=== PATIENT | female | born 1995 | race Caucasian/White ===

== ENCOUNTER → 2017-07-02 | Outpatient (CLI) | payer BC ==
[2017-07-03 14:57] LABS: CHLAMYDIA TRACH RNA*** NOT DETECTED (NOT DETECTED); GC (NEIS GONORRHOEAE)RNA** NOT DETECTED (NOT DETECTED)
== END | disposition home or self-care (01) ==
LOC: C.LABSPEC 10:50
PROVIDERS: ATTEND Physician Assistant
DX: Z01.419 Encounter for gynecological examination (general) (routine) without abnormal findings (principal)

== ENCOUNTER → 2017-07-02 | Outpatient (CLI) | payer BC | END | disposition home or self-care (01) | LOC: C.PAPS 11:19 | PROVIDERS: ATTEND Physician Assistant | DX: Z01.419 Encounter for gynecological examination (general) (routine) without abnormal findings (principal) ==

== ENCOUNTER 2022-08-13 03:46 | Inpatient (IN) ==
[2022-08-13] MEDS ORDERED: OXYTOCIN 30 UNITS/500 ML BAG IV PRN ×2 (04:30→08:39)
[2022-08-13] MEDS ORDERED: LIDOCAINE 1% LOCAL 20 ML VIAL INFIL PRN (04:30)
[2022-08-13] MEDS ORDERED: ePHEDrine sulfate 50 MG/ML AMP ONE (04:36)
[2022-08-13] MEDS ORDERED: LIDOCAINE 2%/EPINEPHRINE 1:200,000 20 ML SDV ONE (04:37)
[2022-08-13] MEDS ORDERED: fentaNYL 2MCG/ML ROPIVACAINE 1.25MG/ML 100 ML BAG EPI ONE (04:37)
[2022-08-13] MEDS ORDERED: BUPIVACAINE 0.25% 30 ML VIAL ONE ×2 (04:37→10:19)
[2022-08-13] MEDS ORDERED: fentaNYL citrate 100 MCG/2 ML VIAL ONE (04:37)
[2022-08-13] MEDS ORDERED: SODIUM CHLORIDE 0.9% INJ 10 ML VIAL ONE (04:37)
--- NOTE | 2022-08-13 04:39 | History & Physical Report ---
Date of Service August 13, 2022 Assessment & Plan (1) Supervision of normal intrauterine in primigravida: Plan: IUP at 38 weeks with SPROM and spontaneous labor check BSG now epidural when requested anticipate vaginal delivery History of Present Illness Primary Care Provider: Tony Williamson Patient is a 27 yo female EDC 08/26/22 who presents with SPROM and spontaneous onset of contractions at 0100. complicated by presumed GDM as patient failed 1 hr Glucola but never did 2hr GTT. growth scans have been AGA. last scan at 36 weeks is EFW 66%tile/ AC 75%tile. GBS negative. Blood type A positive. Allergies Allergy/AdvReac Type Severity Reaction Status Date / Time Penicillins Allergy Intermediate Rash Verified 08/13/22 04:08 Home Medications Medication Instructions Recorded Confirmed Type prenat.vits,dino,eex-qpdc-oceer 1 tab PO DAILY 01/18/22 08/13/22 History Patient History Medical History H/O infectious mononucleosis Migraine with aura no estrogens. Surgical History History of dental surgery Family History Mother Hypertension Denies family history of Ovarian cancer Breast cancer Colorectal cancer Social History (Updated 01/18/22 @ 09:53 by Alisa Davis) Smoking Status: Never smoker Hx Alcohol Use: No Hx Substance Use: No Preferred Language: Tajik Communication Ability: Effective Resawyer Required: No Beliefs That Will Affect Care: None marital status: Single marital status details: Russel (25) [phone] Current Living Situation: Significant Other Current Living Situation Comment: house with FOB current occupational status: employed current occupation: Attendant [employer] Other Information That Helps Us Care for You: No Feels Safe at Home: Yes Safety Concerns: Feels Safe At This Time Assistive Devices: None Review of Systems All systems reviewed & are unremarkable except as noted in HPI & below Physical Exam Constitutional: WD/WN, vitals as above Psychiatric: A+Ox3, euthymic affect Genitourinary: OB Exam Abdomen: + vertex, + estimated weight (7-8 pounds) and + regular contractions Manual OB Exam: + cervical dilation 4 cm, + cervical effacement 80%, + station -1 and + amniotic fluid (grossly ruptured) clear OB Exam Monitor Tracing: + external FHT monitor used, + external uterine monitor used, + category I and + normal FHT variability Results & Data ([place]) Vital Signs (Past 12 Hours) Vital Signs Temp Pulse Resp BP O2 Del Method 08/13/22 04:09 98.4 F 18 Room Air 08/13/22 04:07 98.4 F 93 H 18 134/77 Code Status & VTE Plan VTE Prophylaxis Plan VTE Prophylaxis will be ordered: No Coding Level of Care Code None Diagnoses Supervision of normal intrauterine in primigravida Z34.00
[2022-08-13] MEDS: LACTATED RINGER'S 1,000 ML IV PRN ×3 (04:43→09:50)
[2022-08-13 04:59] LABS: Hematocrit (blood only) 32.3 % (34.1-44.9); Hemoglobin 10.1 g/dl (12.0-16.0); Mean Corpuscular Hemoglobin 23.2 pg (25.0-34.0); Mean Corpuscular Hgb Conc 31.3 g/dL (32.0-36.0); Mean Corpuscular Volume 74.1 fL (80.0-100.0); Mean Platelet Volume 9.6 fL (9.4-12.3); Platelet Count 301 K/uL (130-400); RDW Coefficient of Variation 15.4 % (11.5-14.5); RDW Standard Deviation 40.9 fL (36.4-46.3); Red Blood Count 4.36 M/uL (3.93-5.22); White Blood Count 9.67 K/ul (4.8-10.8)
[2022-08-13] MEDS ORDERED: diphenhydrAMINE 50 MG/ML VIAL IV PRN (05:16)
[2022-08-13] MEDS ORDERED: NALBUPHINE HCL INJ 10 MG/ML AMP IV PRN (05:16)
[2022-08-13] MEDS ORDERED: NALOXONE HCL 1 MG in SODIUM CHLORIDE 0.9% 1000ML 1,000 ML IV PRN (05:16)
[2022-08-13] MEDS ORDERED: ONDANSETRON INJ 2 MG/ML 2 ML VIAL IV PRN (05:16)
[2022-08-13] MEDS ORDERED: fentaNYL 2MCG/ML ROPIVACAINE 1.25MG/ML 100 ML BAG EPI PRN (05:16)
[2022-08-13] MEDS ORDERED: ePHEDrine sulfate 50 MG/ML AMP IV PRN (05:16)
[2022-08-13] MEDS ORDERED: NALOXONE HCL 0.4 MG/1 ML VIAL/CARP IV PRN (05:16)
--- NOTE | 2022-08-13 05:18 | Anesthesiology Consultation ---
Date of Service August 13, 2022 Assessment & Plan Chart Review Chart Review: Patient NOT seen in Pre Admission Testing and Acceptable Risk for Labor Epidural Consults Requested none ASA ASA2 Proposed Anesthesia Anesthesia Type: Labor Epidural and CSE Risk / Benefits Reviewed With: PT / POA / Parent / Guardian, Accepts Plan and Informed Consent Obtained History Height/Weight Height: 5 ft 4 in Weight: 97.976 kg Allergies Allergy/AdvReac Type Severity Reaction Status Date / Time Penicillins Allergy Intermediate Rash Verified 08/13/22 04:08 Medications Home Medications Medication Instructions Recorded Confirmed Last Taken prenat.vits,dino,kyh-fneo-ygerj 1 tab PO DAILY 01/18/22 08/13/22 08/12/22 Active Medications Generic Name Dose Route Start Last Admin Trade Name Freq PRN Reason Stop Dose Admin Lactated Ringer's 1,000 mls @ 125 mls/hr 08/13/22 04:30 08/13/22 04:43 Lr IV 08/15/22 04:29 999 mls/hr .Q8H PRN Administration L&D Protocol Protocol NPO Date Last Intake of Fluids: 08/13/22 Time Last Intake of Fluids: 04:00 Date Last Intake of Solids: 08/12/22 Time Last Intake of Solids: 18:00 Past Medical History Medical History H/O infectious mononucleosis Migraine with aura no estrogens. Exercise / Class Metabolic Activity II 4-5 Yardwork/Stairs/Walk up hill Past Family History Family History Mother Hypertension Denies family history of Ovarian cancer Breast cancer Colorectal cancer Past Surgical History Surgical History History of dental surgery Past Anesthesia History No Hx of Anesthesia Complications and No Family Hx of Anesthesia Complications History of PONV No Hx of PONV and No Hx of Motion Sickness Social History Smoking Status: Never smoker Hx Alcohol Use: No Hx Substance Use: No Review of Systems no chest pain or sob Physical Exam Vital Signs Last Vital Signs Temp 36.9 C 08/13/22 04:09 Pulse 93 H 08/13/22 04:07 Resp 18 08/13/22 04:09 BP 134/77 08/13/22 04:07 O2 Del Method 08/13/22 04:09 ENMT Mouth: no TMJ abnormality Thyromental Distance: > or= 3.5 Finger Breadths Mallampati Class: II Neck normal visual inspection Respiratory normal respiratory effort Auscultation: lungs clear to auscultation bilaterally Cardiovascular Rate/Rhythm: regular rate and regular rhythm Musculoskeletal Spine: normal cervical ROM Neurologic moves all extremities Psychiatric Orientation: alert and oriented x 3 Testing Laboratory Results 08/13/22 04:52 08/13/22 04:37 POC Glucose 70
[2022-08-13] MEDS ORDERED: Nursing to Pharmacy Communication SCH (09:45)
[2022-08-13] MEDS ORDERED: NURSING L&D Epidural Breakthrough Pain Update ONE (09:57)
--- NOTE | 2022-08-13 12:35 | Delivery Summary ---
Vaginal Delivery Summary Date of Service August 13, 2022 Vaginal Delivery Summary DIAGNOSES: 1. Mayes intrauterine at 38w1d gestation. 2. Spontaneous onset of labor. 3. Group B Streptococcus Neg. 4. Gestational Diabetes PROCEDURE: Spontaneous vaginal delivery and repair of first-degree laceration. SURGEON: Ju Meier MD. LABORATORY TESTER: None. ESTIMATED BLOOD LOSS: 250 mL. COMPLICATIONS: None. PLACENTA: Spontaneous and intact with a 3-vessel cord. DISPOSITION: Stable to labor and delivery. DESCRIPTION: The patient pushed well and brought the head to in OA position. The infant's head was allowed to deliver with contraction force and no further active pushing, with the perineum protected during this time. There was no nuchal cord. The left shoulder was anterior. The shoulders and body delivered without any difficulty, and the was placed on the maternal abdomen. It was vigorous and moving all extremities, and making respiratory efforts. The cord was doubly clamped by the MD and then cut by the FOB. The placenta delivered spontaneously and was noted to be intact and with a 3VC and a marginal insertion. The cervix, vagina and perineum were examined and were found to have a shallow, first-degree posterior vaginal laceration to the patient's R along the hymenal ring, which was repaired in running locked manner with 3-0 vicryl. The fundus was firm and lochia minimal immediately after delivery. [facility] Vaginal Delivery Charge Vaginal Delivery Codes: 81426 global code for the antepartum, delivery, and post-
[2022-08-13] MEDS ORDERED: BENZOCAINE 20% AER SPR 82.5 GM CAN EXT PRN (13:16)
[2022-08-13] MEDS ORDERED: DIPHTHERIA/TETANUS/PERTUSSIS 0.5 ML SYR/VIAL IM ONE (13:16)
[2022-08-13] MEDS ORDERED: bisacodyL 10 MG SUPP PR PRN (13:16)
[2022-08-13] MEDS ORDERED: HYDROCORTISONE ACETATE 25 MG SUPP PR PRN (13:16)
[2022-08-13] MEDS ORDERED: ACETAMINOPHEN 325 MG TAB PO PRN (13:16)
--- NOTE | 2022-08-13 16:11 | Anesthesia Procedure Note ---
Date of Service August 13, 2022 Anesthesia Post Epidural Note Vital Signs Vital Signs: Temp Pulse Resp BP Pulse Ox O2 Del Method 36.6 C 112 H 18 136/68 100 08/13/22 11:05 08/13/22 14:48 08/13/22 14:33 08/13/22 14:48 08/13/22 12:28 08/13/22 04:09 Notes Mental Status: alert / awake / arousable Nausea / Vomiting: adequately controlled Pain: adequately controlled Airway Patency, RR, SpO2: stable & adequate BP & HR: stable & adequate Hydration State: stable & adequate Neuraxial Anesthesia: was administered and sensory block is resolving Anesthetic Complications: no major complications apparent and Pt Satisfied with anesthetic care Epidural: Removed without complications and With tip intact
[2022-08-13] MEDS: DOCUSATE SODIUM 100 MG CAP PO SCH (20:43)
[2022-08-14] MEDS: IBUPROFEN 600 MG TAB PO PRN ×3 (01:11→21:13)
[2022-08-14 07:05] LABS: Hematocrit (blood only) 28.1 % (34.1-44.9); Hemoglobin 8.8 g/dl (12.0-16.0); Mean Corpuscular Hemoglobin 23.2 pg (25.0-34.0); Mean Corpuscular Hgb Conc 31.3 g/dL (32.0-36.0); Mean Corpuscular Volume 74.1 fL (80.0-100.0); Mean Platelet Volume 9.8 fL (9.4-12.3); Platelet Count 224 K/uL (130-400); RDW Coefficient of Variation 15.7 % (11.5-14.5); RDW Standard Deviation 42.2 fL (36.4-46.3); Red Blood Count 3.79 M/uL (3.93-5.22)
--- NOTE | 2022-08-14 07:08 | Obstetrical Progress Note ---
Date of Service <Connie Mccullough MD - Last Filed: 08/14/22 08:15> August 14, 2022 Assessment & Plan <Connie Mccullough MD - Last Filed: 08/14/22 08:15> (1) care following vaginal delivery: 27 y/o female who presented with SPROM now PPD1. GBS negative. Blood type A positive. Satisfactory post progress. Encourage ambulation. Tolerating PO. <Hugo Rasheed MD - Last Filed: 08/15/22 08:44> (1) care following vaginal delivery: Subjective <Connie Mccullough MD - Last Filed: 08/14/22 08:15> Ambulation: ambulating normally Voiding: no voiding problems Passing Gas:: Yes Diet Tolerance:: regular diet Lochia:: Small Feeding Type:: breast feeding no f/c/CP/SOB/calf pain Physical Exam <Connie Mccullough MD - Last Filed: 08/14/22 08:15> Constitutional WD/WN, vitals as above Respiratory normal respiratory effort, lungs clear to auscultation Cardiovascular RRR, no murmur, no edema Extremities: no calf tenderness Psychiatric A+Ox3, euthymic affect Genitourinary OB Exam Abdomen: + fundal height (at the level of the umbilicus) Fundus: + firm Results & Data ([facility]) <Connie Mccullough MD - Last Filed: 08/14/22 08:15> Vital Signs (Past 12 Hours) Vital Signs Temp Pulse Resp BP Pulse Ox O2 Del Method 08/14/22 04:44 36.8 C 90 18 122/78 99 Room Air 08/14/22 00:30 36.7 C 95 H 18 128/74 100 Room Air 08/13/22 19:25 Room Air 08/13/22 19:24 37.1 C 98 H 18 133/78 100 Room Air <Hugo Rasheed MD - Last Filed: 08/15/22 08:44> Co-Signing Physician Notes patient seen and evaluated with resident and agree with the above findings and plan. Routine care Resident Activity Tracking <Connie Mccullough MD - Last Filed: 11/22/22 08:15> Resident Involvement: Resident Care Provided Care Provided: OB Delivery
[2022-08-14] MEDS: DOCUSATE SODIUM 100 MG CAP PO SCH ×2 (08:49→21:12)
[2022-08-14] MEDS: PRENATAL VITAMIN 1 TAB PO SCH (08:49)
[2022-08-14] MEDS ORDERED: bisacodyL 5 MG TABEC PO SCH (20:00)
--- NOTE | 2022-08-15 06:03 | Obstetrical Progress Note ---
Date of Service <Connie Mccullough MD - Last Filed: 08/15/22 07:32> August 15, 2022 Assessment & Plan <Connie Mccullough MD - Last Filed: 08/15/22 07:32> (1) care following vaginal delivery: 27 y/o female who presented with SPROM now PPD2. GBS negative. Blood type A positive. Satisfactory post progress. Encourage ambulation. Tolerating PO. Cleared for discharge from an OB perspective - f/u in office in 6 weeks. <Clementine Serrano MD, FACOG - Last Filed: 08/15/22 07:50> (1) care following vaginal delivery: Subjective <Connie Mccullough MD - Last Filed: 08/15/22 07:32> Ambulation: ambulating normally Voiding: no voiding problems Passing Gas:: Yes Diet Tolerance:: regular diet Lochia:: Small Feeding Type:: breast feeding no f/c/SOB/CP/calf pain Physical Exam <Connie Mccullough MD - Last Filed: 08/15/22 07:32> Constitutional WD/WN, vitals as above Respiratory normal respiratory effort, lungs clear to auscultation Cardiovascular RRR, no murmur, no edema Extremities: no calf tenderness Psychiatric A+Ox3, euthymic affect Genitourinary OB Exam Abdomen: + fundal height (at the level of the umbilicus) Fundus: + firm Results & Data ([facility]) <Connie Mccullough MD - Last Filed: 08/15/22 07:32> Vital Signs (Past 12 Hours) Vital Signs Temp Pulse Resp BP O2 Del Method 08/14/22 20:00 36.7 C 99 H 18 139/85 Room Air <Clementine Serrano MD, FACOG - Last Filed: 08/15/22 07:50> Co-Signing Physician Notes Resident Physician Supervision Note: I interviewed and examined the patient. Discussed with Dr. Mccullough and agree with findings and plan as documented in the note. Any exceptions or clarifications are listed here: Doing well. Plan d/c. Instructions given. Documented By: Clementine Serrano MD, FACOG Resident Activity Tracking <Connie Mccullough MD - Last Filed: 08/15/22 07:32> Resident Involvement: Resident Care Provided Care Provided: OB Delivery
[2022-08-15 07:00] LABS: Hematocrit (blood only) 28.9 % (34.1-44.9); Hemoglobin 8.8 g/dl (12.0-16.0)
[2022-08-15] MEDS: DOCUSATE SODIUM 100 MG CAP PO SCH (08:31)
[2022-08-15] MEDS: PRENATAL VITAMIN 1 TAB PO SCH (08:31)
== END 2022-08-15 11:32 | disposition home or self-care (01) | DRG 807 ==
LOC: OPB 03:46 → 4S1 03:49 → 4E2 15:15

== ENCOUNTER 2023-07-31 07:47 | Inpatient (IN) ==
--- NOTE | 2023-07-31 08:05 | History & Physical Report ---
Date of Service July 31, 2023 Assessment & Plan (1) Encounter for induction of labor: Plan Will admit patient to L&D for elective IOL. Patient comfortable. VSS. Fetus category 1. Pit as needed Epidural prn Patient in agreement. Admission and Anticipated Discharge Date Admission Date: July 31, 2023 History of Present Illness Chief Complaint: INDUCTION Primary Care Provider: Tony Hdz is a 28 y/o female with no significant PMHx who is currently at IUP 39 3/ WGA with an JAKE 08/04/23 as determined by Ultrasound who is here for elective IOL. (+) movement (-) contractions (-) fluid loss (-) bloody show External FHT and external uterine monitors used * Category 1 tracing * Moderate FHT variability. Had regular appointments since 1st trimester. OB Labs: Blood Type A Positive 12/13/22 Antibody Screen NEGATIVE 12/13/22 Hemoglobin 9.3 g/dl (12.0-16.0) L 05/17/23 Hematocrit 29.6 % (37.0-47.0) L 05/17/23 Mean Corpuscular Volume 80.3 fL (80.0-100.0) 12/13/22 Platelet Count 351 K/uL (130-400) 12/13/22 Rubella IgG Antibody Immune (Immune) 12/13/22 Rapid Plasma Reagin Nonreactive (Nonreactive) 12/13/22 Hepatitis B Surface Antigen. NON-REACTIVE (NON-REACTIVE) 12/13/22 Hepatitis C Antibody (EIA) NON-REACTIVE (NON-REACTIVE) 12/13/22 HIV (1&2) Ag and Ab Confirmation NON-REACTIVE (NON-REACTIVE) 12/13/22 Glucose 1 Hour 50 gm Load 135 mg/dl (70-130) H 05/17/23 Maternal Serum Alpha Fetoprotein 41.2 ng/mL 03/16/22 OB Optional Labs: Chlamydia trachomatis RNA Not Detected (NotDetected) 12/13/22 Neisseria gonorrhoeae RNA Not Detected (NotDetected) 12/13/22 Alpha Fetoprotein Triple Screen SEE NOTE 03/16/22 Labs Reviewed: gbs neg low risk panorama neg afp Allergies Allergy/AdvReac Type Severity Reaction Status Date / Time Penicillins Allergy Intermediate Rash Verified 07/30/23 08:52 Home Medications Medication Instructions Recorded Confirmed Type prenat.vits,dino,zbb-edhz-eadal 1 tab PO DAILY 01/18/22 07/30/23 History Patient History Medical History (Updated 07/31/23 @ 08:04 by Emerald Conklin MD) GDM (gestational diabetes mellitus) Migraine with aura no estrogens. H/O infectious mononucleosis Surgical History History of dental surgery Family History Mother Hypertension Denies family history of Ovarian cancer Breast cancer Colorectal cancer Social History (Updated 12/03/22 @ 08:55 by Alisa Davis) Smoking Status: Never smoker Do You Dip or Chew Tobacco: No; Hx Alcohol Use: No Hx Substance Use: No Preferred Language: Bolivian Communication Ability: Effective Vegetable Scullion Required: No Beliefs That Will Affect Care: None marital status: Single marital status details: Russel (26) [phone] Current Living Situation: Significant Other Current Living Situation Comment: house with FOB and child, 3 cats,fob changing litter . current occupational status: employed current occupation: vault teller, Feels Safe at Home: Yes Assistive Devices: None OB History 1 previous * (08/13/22) F born at 38 wga and weighed 7 lb 6.2 oz; had GDM (never did the 2 hr) [employer]OR [employer] History Menarche was at 13 y/o LMP: 10/13/22 * Irregular * Flow: Normal Contraception use: no History of STDs: N Last Pap Smear: 11/14/21 (negative) Review of Systems no fever, no chills and no sweats Denies changes in vision. Denies shortness of breath or respiratory difficulty. no chest pain and no palpitations no dysuria no headache(s) Physical Exam Physical Exam: General: Alert, oriented x3. Afebrile. No acute distress. Eyes: Pupils equal and reactive to light bilaterally. Extraocular movement intact bilaterally. Cardiac: Regular rate and rhythm, no murmurs/rubs/gallops. Respiratory: Clear to auscultation bilaterally a/p, no wheezes/rales/rhonchi. No increased work of breathing. Symmetrical chest rise. No respiratory distress. Abdomen: Gravid; FHR baseline 135-140 bpm; Position: Cephalic Pelvic: 3.5 / 50 / -[address] Erickson Lower Extremities: No lower extremity edema or swelling. No deep calf pain. Sunshine's negative bilaterally Supervising Physician Co-Signing Physician Notes Resident Physician Supervision Note: I interviewed and examined the patient. Discussed with Dr. Conklin and agree with findings and plan as documented in the note. Any exceptions or clarifications are listed here: 28 yo at 39 3/7 wga by 1st tri US presents for eIOL. +FM; denies regular ctx, LOF, VB. PNI: concavity of chest at level of heart, declined MFM, has fam hx of pectus excavatum. VSS, Fetus cat 1. SVE 3-4/50/-2, EFW 8. GBS neg, epidural prn. Will start pit Documented By: Joelle Erickson MD Resident Activity Tracking Resident Involvement: Resident Care Provided Care Provided: OB Delivery
[2023-07-31] MEDS ORDERED: LIDOCAINE 1% LOCAL 20 ML VIAL INFIL PRN (08:06)
[2023-07-31] MEDS ORDERED: OXYTOCIN 30 UNITS/500 ML BAG IV PRN ×3 (08:06→15:09)
[2023-07-31 08:32] LABS: Hematocrit (blood only) 28.4 % (37.0-47.0); Hemoglobin 8.5 g/dl (12.0-16.0); Mean Corpuscular Hemoglobin 19.3 pg (25.0-34.0); Mean Corpuscular Hgb Conc 29.9 g/dL (32.0-36.0); Mean Corpuscular Volume 64.5 fL (80.0-100.0); Mean Platelet Volume 9.2 fL (9.4-12.4); Nucleated RBC # (auto) 0.02 K/uL (0.00-0.12); Nucleated RBC % (auto) 0.3 %; Platelet Count 261 K/uL (130-400); RDW Coefficient of Variation 18.5 % (11.5-14.5); RDW Standard Deviation 42.5 fL (36.4-46.3); White Blood Count 7.33 K/ul (4.8-10.8)
[2023-07-31] MEDS: LACTATED RINGER'S 1,000 ML IV PRN ×2 (08:50→12:56)
--- NOTE | 2023-07-31 12:34 | Labor Progress Brief Note ---
Date of Service July 31, 2023 Subjective Ctx a little stronger but ok Assessment & Plan (1) Encounter for induction of labor: Plan: 28 yo at 39 3/7 wga admitted for eiol VSS Fetus cat 1 Labor - pit at 12, now s/p arom. Continue induction GBS neg epidural prn Admission and Anticipated Discharge Date Admission Date: July 31, 2023 Physical Exam Genitourinary: Manual OB Exam: + cervical dilation 4 cm, + cervical effacement 50%, + station -2 and + amniotic fluid (arom clear) OB Exam Monitor Tracing: + external FHT monitor used, + external uterine monitor used (q3) and + category I (130/mod/+accel/-decel) Results & Data Vital Signs (Past 12 Hours) Vital Signs Temp Pulse Resp BP 07/31/23 12:07 93 H 07/31/23 12:07 129/69 07/31/23 08:21 97.7 F 20 07/31/23 07:59 97.7 F 109 H 20 126/72 Coding Level of Care Code None Diagnoses Encounter for induction of labor Z34.90
[2023-07-31] MEDS ORDERED: fentaNYL citrate PF 100 MCG/2 ML VIAL ONE (12:35)
[2023-07-31] MEDS ORDERED: ePHEDrine sulfate 50 MG/ML AMP ONE (12:36)
[2023-07-31] MEDS ORDERED: SODIUM CHLORIDE 0.9% PF INJ 10 ML VIAL ONE (12:36)
[2023-07-31] MEDS ORDERED: fentANYL 2 MCG/ML BUPIVacaine 0.125%-NSS 100ML BAG ONE (12:36)
[2023-07-31] MEDS ORDERED: LIDOCAINE 2%/EPINEPHRINE 1:200,000 20 ML PF ONE (12:36)
[2023-07-31] MEDS ORDERED: BUPIVACAINE 0.25% PF 30 ML VIAL ONE (12:36)
--- NOTE | 2023-07-31 12:58 | Anesthesiology Consultation ---
Date of Service July 31, 2023 Assessment & Plan Chart Review Chart Review: Acceptable Risk for Labor Epidural Consults Requested none ASA ASA2 Proposed Anesthesia Anesthesia Type: Labor Epidural Risk / Benefits Reviewed With: PT / POA / Parent / Guardian, Accepts Plan and Informed Consent Obtained History Height/Weight Height: 5 ft 4 in Weight: 98.976 kg Allergies Allergy/AdvReac Type Severity Reaction Status Date / Time Penicillins Allergy Intermediate Rash Verified 07/30/23 08:52 Medications Home Medications Medication Instructions Recorded Confirmed Last Taken prenat.vits,dino,wkq-bkzh-vzezk 1 tab PO DAILY 01/18/22 07/30/23 08/12/22 Active Medications Generic Name Dose Route Start Last Admin Trade Name Freq PRN Reason Stop Dose Admin Oxytocin 30 units in 500 mls @ 12 mls/hr 07/31/23 08:06 07/31/23 11:55 Pitocin IV 08/02/23 08:05 0.72 units/hr .Q24H PRN 12 mls/hr Labor Induction/Augmentation Titration Protocol 0.72 UNITS/HR Lactated Ringer's 1,000 mls @ 125 mls/hr 07/31/23 08:06 07/31/23 12:56 Lr IV 08/02/23 08:05 999 mls/hr .Q8H PRN Administration L&D Protocol Protocol Past Medical History Medical History GDM (gestational diabetes mellitus) Migraine with aura no estrogens. H/O infectious mononucleosis Exercise / Class Metabolic Activity II 4-5 Yardwork/Stairs/Walk up hill Past Family History Family History Mother Hypertension Denies family history of Ovarian cancer Breast cancer Colorectal cancer Past Surgical History Surgical History History of dental surgery Past Anesthesia History No Hx of Anesthesia Complications and No Family Hx of Anesthesia Complications History of PONV No Hx of PONV and No Hx of Motion Sickness Social History Smoking Status: Never smoker Do You Dip or Chew Tobacco: No Hx Alcohol Use: No Hx Substance Use: No Physical Exam Vital Signs Last Vital Signs Temp 97.7 F 07/31/23 08:21 Pulse 81 07/31/23 12:51 Resp 20 07/31/23 08:21 BP 129/69 07/31/23 12:07 Pulse Ox 100 07/31/23 12:51 ENMT Mouth: no dentition abnormality Thyromental Distance: > or= 3.5 Finger Breadths Mallampati Class: II Neck normal visual inspection Respiratory normal respiratory effort Auscultation: lungs clear to auscultation bilaterally Cardiovascular Rate/Rhythm: regular rate and regular rhythm Testing Laboratory Results 07/31/23 08:24 Blood Type A Positive 07/31/23 08:24 Blood Type Cancelled 07/31/23 08:24 Antibody Screen Cancelled 07/31/23 08:24 Antibody Screen NEGATIVE 07/31/23 08:24
[2023-07-31] MEDS ORDERED: NALOXONE HCL 0.4 MG/1 ML VIAL/CARP IV PRN (13:15)
[2023-07-31] MEDS ORDERED: BUPIVACAINE 0.25% PF 30 ML VIAL EPI PRN (13:15)
[2023-07-31] MEDS ORDERED: NALBUPHINE HCL 5 MG in SYRINGE 0 ML IV PRN (13:15)
[2023-07-31] MEDS ORDERED: ROPIVACAINE 0.5% PF 5 MG/ML 20 ML VIAL EPI PRN (13:15)
[2023-07-31] MEDS ORDERED: fentANYL 2 MCG/ML BUPIVacaine 0.125%-NSS 100ML BAG EPI PRN (13:15)
[2023-07-31] MEDS ORDERED: fentaNYL citrate PF 100 MCG/2 ML VIAL EPI PRN (13:15)
[2023-07-31] MEDS ORDERED: SODIUM CHLORIDE 0.9% PF INJ 10 ML VIAL EPI PRN (13:15)
[2023-07-31] MEDS ORDERED: NALOXONE HCL 1 MG in SODIUM CHLORIDE 0.9% 1,000 ML IV PRN (13:15)
[2023-07-31] MEDS ORDERED: LIDOCAINE 2% MPF LOCAL 5 ML VIAL EPI PRN (13:15)
[2023-07-31] MEDS ORDERED: SODIUM CHLORIDE 0.9% PF INJ 10 ML VIAL EPI STA (13:15)
[2023-07-31] MEDS ORDERED: LIDOCAINE 2%/EPINEPHRINE 1:200,000 20 ML PF EPI STA (13:15)
[2023-07-31] MEDS ORDERED: diphenhydrAMINE 50 MG/ML VIAL IV PRN (13:15)
[2023-07-31] MEDS ORDERED: ePHEDrine sulfate 50 MG/ML AMP IV PRN (13:15)
[2023-07-31] MEDS ORDERED: BUPIVACAINE 0.25% PF 30 ML VIAL EPI STA (13:15)
[2023-07-31] MEDS ORDERED: fentaNYL citrate PF 100 MCG/2 ML VIAL EPI STA (13:15)
[2023-07-31] MEDS ORDERED: ONDANSETRON INJ 2 MG/ML 2 ML VIAL IV PRN (13:15)
--- NOTE | 2023-07-31 14:44 | Delivery Summary ---
Vaginal Delivery Summary Date of Service July 31, 2023 Vaginal Delivery Summary and 2nd Degree LAC PREOPERATIVE DIAGNOSIS: 1. Single intrauterine at 39 3/7 wga 2. Elective induction 3. Short interval POSTOPERATIVE DIAGNOSIS: 1. Single intrauterine at 39 3/7 wga 2. Elective induction 3. Short interval 4. Delivered PROCEDURE: 1. Normal spontaneous vaginal delivery. SURGEON: Joelle Erickson MD ANESTHESIA: Epidural. ESTIMATED BLOOD LOSS: 300 mL FLUIDS: Continuous LR. URINE OUTPUT: None. COMPLICATIONS: None. CONDITION: Stable. INDICATIONS: 28 yo at 39 3/7 wga presented for induction of labor. She was 3cm on arrival and started on pitocin. She underwent AROM at 4-5cm and requested an epidural. She progressed over 2 hours to complete and desired to push FINDINGS: A viable female , weight pending with Apgars of 8 and 9 at 1 and 5 minutes respectively. SPECIMEN: Cord blood OPERATIVE REPORT: The patient progressed to 10 cm, 100% effaced and +2 station, quickly pushed over intact perineum with anesthesia to deliver a viable female , weight and Apgars as above. Head of delivered in LOVE position. No nuchal cord was present. Body and shoulders were delivered without difficulty. was delivered to maternal abdomen and nursing staff. Delayed cord clamping was performed for 60 seconds. Cord was clamped and cut. Cord blood was obtained. Placenta delivered spontaneously intact with 3-vessel cord. IV oxytocin and fundal massage were given for excellent hemostasis. Vagina, cervix, perineum, and placenta were inspected. A second degree laceration was noted and repaired using 3-0 vicryl. There was excellent hemostasis. Sponge and needle counts correct x2. No sponges were left behind. Mother and stable in immediate period. [facility] Vaginal Delivery Charge Vaginal Delivery Codes: 31709 global code for the antepartum, delivery, and post- Delivery Type Details: and 2nd Degree LAC
[2023-07-31] MEDS ORDERED: DIPHTHERIA/TETANUS/PERTUSSIS Vaccine (Tdap, Age 7+yrs) 0.5mL SYR/VL IM ONE (15:09)
[2023-07-31] MEDS ORDERED: bisacodyL 10 MG SUPP PR PRN (15:09)
[2023-07-31] MEDS ORDERED: ACETAMINOPHEN 325 MG TAB PO PRN (15:09)
[2023-07-31] MEDS ORDERED: BENZOCAINE 20% SPRY 85 APPLN/85 GM CAN EXT PRN (15:09)
[2023-07-31] MEDS ORDERED: HYDROCORTISONE ACETATE 25 MG SUPP PR PRN (15:09)
--- NOTE | 2023-07-31 16:45 | Anesthesia Procedure Note ---
Date of Service July 31, 2023 Anesthesia Post Epidural Note Vital Signs Vital Signs: Temp Pulse Resp BP Pulse Ox 97.7 F 53 L 20 131/71 86 L 07/31/23 08:21 07/31/23 16:30 07/31/23 08:21 07/31/23 16:30 07/31/23 14:42 Notes Mental Status: alert / awake / arousable and participated in evaluation Nausea / Vomiting: adequately controlled Pain: adequately controlled Airway Patency, RR, SpO2: stable & adequate BP & HR: stable & adequate Hydration State: stable & adequate Neuraxial Anesthesia: was administered and sensory block is resolving Anesthetic Complications: no major complications apparent and Pt Satisfied with anesthetic care Epidural: Removed without complications and With tip intact
[2023-07-31] MEDS: IBUPROFEN 600 MG TAB PO PRN (21:14)
[2023-07-31] MEDS: DOCUSATE SODIUM 100 MG CAP PO SCH (21:15)
--- NOTE | 2023-08-01 06:08 | Obstetrical Progress Note ---
Date of Service <Emerald Conklin MD - Last Filed: 08/01/23 07:10> August 01, 2023 Assessment & Plan <Emerald Conklin MD - Last Filed: 08/01/23 07:10> (1) Encounter for assessment: Plan Patient with the above mentioned history and findings was evaluated at bedside and found awake, alert, oriented in all spheres, afebrile, and in no acute distress. Vital signs showed no fever and blood pressures remained stable Her blood type is A pos and most recent hemoglobin is adequate at 8.5 g/dL. She is GBS negative and rubella immune. Overall, patient is doing well clinically and meeting all the desired milestones. Since she is clinically and hemodynamically stable, will discharge today. Patient counseled to schedule a follow up appointment with the OB office in 6 weeks for her routine pp evaluation. Discharge instructions discussed. All questions were answered. <Joelle Erickson MD - Last Filed: 08/01/23 07:46> (1) Encounter for assessment: Subjective <Emerald Conklin MD - Last Filed: 08/01/23 07:10> Andreina is a 28 y/o female who is now PPD # 1 following at 39 3/7. Reports feeling well overall this morning. Refers mild abdominal cramping & 1/10 pain well managed on analgesics. Voiding spontaneously. She has not passed flatus or had a bowel movement yet. Tolerating meals overnight and able to ambulate some. Some persistent lochia with some improvement this morning. Bottle feeding. Constitutional: no fever, no chills or no sweats Denies shortness of breath or difficulty breathing Cardiovascular: no chest pain or no palpitations Breast: no breast pain Genitourinary (female): no dysuria Neurologic: no headache(s) Denies changes in vision Physical Exam <Emerald Conklin MD - Last Filed: 08/01/23 07:10> General: Alert. Oriented to person, time, and place. Afebrile. No acute distress. Eyes: pupils equal and reactive to light bilaterally, extraocular movements intact. Cardiac: Regular rate and rhythm, no murmurs/rubs/gallops. Respiratory: Clear to auscultation bilaterally. No increased work of breathing. Symmetrical chest rise. No respiratory distress. Abdomen: Soft, nontender, nondistended. Bowel sounds present. Uterus: Uterine fundus firm, non-tender, and palpable below umbilicus. Lower Extremities: No lower extremity edema or swelling. No deep calf pain. Sunshine's negative bilaterally. Psych: Euthymic affect. Mood and affect congruence. Regular speech rate and content. Results & Data <Emerald Conklin MD - Last Filed: 08/01/23 07:10> Vital Signs (Past 12 Hours) Vital Signs Temp Pulse Resp BP Pulse Ox O2 Del Method 08/01/23 04:50 36.6 C 87 16 115/76 99 Room Air 08/01/23 00:10 36.7 C 92 H 16 127/85 98 Room Air 07/31/23 21:00 36.6 C 85 16 119/75 100 Room Air Supervising Physician <Joelle Erickson MD - Last Filed: 08/01/23 07:46> Co-Signing Physician Notes Resident Physician Supervision Note: I interviewed and examined the patient. Discussed with Dr. Conklin and agree with findings and plan as documented in the note. Any exceptions or clarifications are listed here: PP1 s/p , doing well. Exam benign and wnl. Desires dc home later, ok to do so Documented By: Joelle Erickson MD Resident Activity Tracking <Emerald Conklin MD - Last Filed: 08/01/23 07:10> Resident Involvement: Resident Care Provided Care Provided: OB Delivery
[2023-08-01] MEDS: IBUPROFEN 600 MG TAB PO PRN (07:29)
[2023-08-01] MEDS: DOCUSATE SODIUM 100 MG CAP PO SCH (07:29)
[2023-08-01] MEDS ORDERED: PRENATAL VITAMIN 1 TAB PO SCH (08:00)
[2023-08-01] MEDS ORDERED: FERROUS SULFATE 325 MG TAB PO SCH (08:00)
[2023-08-01] MEDS ORDERED: bisacodyL 5 MG TABEC PO SCH (20:00)
== END 2023-08-01 15:30 | disposition home or self-care (01) | DRG 807 ==
LOC: 4S1 07:47 → 4E2 18:15